=== PATIENT | female | born 1955 | race Caucasian/White ===

== ENCOUNTER 2016-05-05 16:58 | Observation (INO) | payer OTHER, MEDICAID ==
[~2016-05-05] VITALS: Ht 165.1 cm; Wt 49.9 kg
[2016-05-05] MEDS: 0.9% Sodium Chloride 1,000 ML IV SCH ×2 (01:45→23:46)
[~2016-05-05 16:58] MED LIST: AMIT10TA6 PO; DOXE100C4 PO; IMI50 PO; PREC VG; [UNRECOGNIZED DRUG - OTHER] PO; clonazepam PO; propanolol PO
[2016-05-05 17:14] VITALS: BP 152/92; PULSE 120; RESP 18; O2SAT 97
[2016-05-05 17:26] LABS: EOSINOPHILS % (AUTO) 0 % (0-5); MONOCYTES % (AUTO) 11.4 % (4-12); Mean Corpuscular Hemoglobin 32.4 pg (27.0-35.0); Mean Corpuscular Volume 93.5 fL (81-100); NEUTROPHILS % (AUTO) 74.7 % (40-74); Platelet Count 303 bil/L (150-400)
--- NOTE | 2016-05-05 17:46 | DRSVH ---
PROCEDURE: X-RAY CHEST ONE VIEW, PORTABLE ([id number]) INDICATIONS: confusion TECHNIQUE: One view of the chest was acquired. COMPARISON: [facility], , CHEST 1VW (PORTABLE), 11/22/2012, 16:11. FINDINGS: Surgical changes and devices: None. Lungs and pleura: No pleural effusions or pneumothorax. Lungs are clear. Mediastinum: Mediastinal contours appear normal. Heart size is normal. Bones and chest wall: No suspicious bony lesions. Overlying soft tissues appear unremarkable. Calci fic tendinitis is present within the shoulders bilaterally. IMPRESSION: No acute pulmonary process. Dictated by: Leesa Willard M.D. on 05/05/2016 at 17:43 Approved by: Leesa Willard M.D. on 05/05/2016 at 17:43
[2016-05-05 18:27] VITALS: BP 158/93; PULSE 124; RESP 24; O2SAT 99
--- NOTE | 2016-05-05 19:08 | DRSVH ---
PROCEDURE: CT BRAIN WITHOUT CONTRAST ([id number]) INDICATIONS: AMS TECHNIQUE: Noncontrast 4.5 mm thick angled axial sections acquired from the foramen magnum to the vertex, with c oronal reformats. COMPARISON: None. FINDINGS: Image quality: Excellent. CSF spaces: Basal cisterns are patent. No extra-axial fluid collections. Ventricles are normal in size and shape. Brain: No midline shift. No intracranial masses or hemorrhage. Malik-white matter interface is norm al. Skull and face: Calvarium and visualized facial bones are intact, without suspicious lesions. Sinuses: Visualized sinuses and mastoids are clear. IMPRESSION: 1. No acute intracranial process. Dictated by: Leesa Willard M.D. on 05/05/2016 at 19:06 Approved by: Leesa Willard M.D. on 05/05/2016 at 19:06
[2016-05-05 20:31] LABS: APPEARANCE,URINE CLEAR (CLEAR,HAZY); COLOR,URINE YELLOW (YELLOW); OCCULT BLOOD,URINE SMALL (NEGATIVE)
--- NOTE | 2016-05-05 21:37 | DRSVH ---
PROCEDURE: CT ABDOMEN AND PELVIS WITH CONTRAST ([id number]) INDICATIONS: leukocytosis TECHNIQUE: After the administration of intravenous contrast, 5 mm thick sections acquired from the diaphragm to the symphysis. 5 mm coronal and sagittal reformats were acquired. For radiation dose reduction, the following was used: automated exposure control, adjustment of mA and/or kV according to patient siz e. COMPARISON: None. FINDINGS: Image quality: Motion is present during multiple portions of the examination, limiting areas of fine detail evaluation. ABDOMEN: Lung bases: Lung bases are clear. Heart size is normal. Solid organs: Liver is enlarged with steatosis. Spleen is normal in size and enhancement. Gallbladd er is unremarkable. Biliary system is non dilated. Pancreas enhances normally. No adrenal nodules. Left kidney demonstrates normal enhancement without obstruction. 37 mm renal cyst is present. The ri ght kidney is in an anterior somewhat lower abdominal position with amorphic structure. There is no g ross obstruction. Peritoneum and bowel: Bowel loops demonstrate normal wall thickness and caliber. No free fluid or a ir. The appendix is unremarkable. No right lower quadrant inflammatory change. Nodes and vessels: No retroperitoneal or mesenteric adenopathy by size criteria. Aorta and inferior vena cava are normal in size. Miscellaneous: No ventral hernias. PELVIS: Genitourinary: Bladder wall thickness is normal. Miscellaneous: No inguinal hernias or adenopathy. Bones: No suspicious bony lesions. No vertebral body compression fractures. IMPRESSION: 1. No definitely visualized source of leukocytosis. 2. It is noted that the right kidney is somewhat amorphous in morphology and in an anterior inferior position. This could represent congenital malrotation. Superimposed areas of old infection or inflamm ation or surgical change cannot be definitively excluded. There is no gross obstruction identified. Dictated by: Leesa Willard M.D. on 05/05/2016 at 21:35 Approved by: Leesa Willard M.D. on 05/05/2016 at 21:35
[2016-05-05] MEDS ORDERED: 0.9% Sodium Chloride 1,000 ML IV ONE (22:08)
--- NOTE | 2016-05-05 22:26 | ED.REPORT ---
HPI-Altered Mental Status Date of Service May 05, 2016 ED Provider: Oliver Lyles MD Pt is a 60 year old female who presents to the ED via EMS due to AMS. Today, the patient was found by her neighbors "babbling" loudly with her pants down and around her ankles. Pt is not able to put together a coherent sentence. Pt's neighbors last saw her normal 36 hours ago. They know of no similar history. When I go into the room to evaluate the patient is singing. When redirected, the patient starts "ruff, ruffing" like a dog. History difficult to obtain. Nursing Notes Stated Complaint: CONFUSED Chief Complaint: General Complaint Nursing Notes Reviewed: Yes Allergies: Coded Allergies: Penicillins (Verified Allergy, Unknown, 11/22/12) Scheduled ([propanolol]) 10 MG PO HS Amitriptyline-Expunged Drug, Do Not Renew! (Amitriptyline-Expunged Drug, Do Not Renew!) 10 Mg Tablet 10 MG PO HS Doxepin-Expunged Drug, Do Not Renew! (Doxepin-Expunged Drug, Do Not Renew!) 100 Mg Capsule 300 MG PO DAILY Estrogens Conj-Expunged Drug, Do Not Renew! (Premarin Vaginal-Expunged Drug, Do Not Renew!) 42.5 Gm Cream.appl 42.5 GM VG DAILY Scheduled PRN ([clonazepam]) 0.5 MG PO DAILY PRN PRN ([excederine]) 1 TAB PO Q4 PRN PRN Sumatriptan-Expunged Drug, Do Not Renew! (Imitrex-Expunged Drug, Do Not Renew!) 50 Mg Tab 25 MG PO DAILY PRN PRN General Time Seen by MD: 19:10 Chief Complaint Not acting right Hx Obtained From: EMS Unable to Obtain Hx: Mental status Arrived By: Ambulance Sudden in Onset?: Yes Onset Occurred: Onset unknown Past Medical History Past Medical History Notes: History obtained from old records Past Medical History Fibromyalgia, migraine headaches, chronic anxiety, insomnia. Past Surgical History She had a tonsillectomy, and two C sections, hysterectomy, BSO, and surgical skin cancer treatment. Smoking History Never Smoker Social History Alcohol Use: Denies alcohol use Drug Use: Denies drug use Review of Systems Unable to Obtain ROS Mental status Physical Exam Initial Vital Signs Vital Signs (First) Date Time Temp Pulse Resp B/P Pulse Ox O2 Delivery O2 Flow Rate FiO2 05/05/16 17:14 36.8 120 18 152/92 97 Room Air Initial VS: Reviewed ENT: Conjunctiva normal, No scleral icterus Skin: Warm, Dry General/Constitutional: Awake Incoherent speaking, "Ruffing" like a dog. Head / Eyes: Atraumatic, Normocephalic, PERRL Neck: Atraumatic, Full range of motion Respiratory / Chest: Breath sounds NL, Breath sounds = bilat, No respiratory distress Cardiovascular: Heart rate NL, Regular rhythm, Heart sounds NL, Peripheral circulation NL Neurologic: No motor deficits Speech incoherent Interpretation & Diagnostics Lab Results Interpretation Result Diagram: 05/05/16 1705 05/05/16 1705 Test 05/05/16 17:05 05/05/16 17:06 05/05/16 20:02 White Blood Count 20.9th/mm3 (3.8-10.1) Red Blood Count 4.45mil/mm3 (3.90-5.20) Hemoglobin 14.4g/dL (12.0-15.6) Hematocrit 41.6% (35.0-46.0) Mean Corpuscular Volume 93.5fL (81-100) Mean Corpuscular Hemoglobin 32.4pg (27.0-35.0) Mean Corpuscular Hemoglobin Concent 34.6% (32.0-37.0) Red Cell Distribution Width 14.7% (12.3-15.4) Platelet Count 303bil/L (150-400) Neutrophils (%) (Auto) 74.7% (40-74) Lymphocytes (%) (Auto) 10.3% (14-46) Monocytes (%) (Auto) 11.4% (4-12) Eosinophils (%) (Auto) 0% (0-5) Basophils (%) (Auto) 1.0% (0-3) Sodium Level 141mEq/L (134-144) Potassium Level 4.0mEq/L (3.5-5.2) Chloride Level 99mEq/L (97-108) Carbon Dioxide Level 18mmol/L (18-29) Blood Urea Nitrogen 19mg/dL (8-27) Creatinine 1.19mg/dL (0.57-1.00) Estimat Glomerular Filtration Rate 66mL/min (>59) Glucose Level 199mg/dL (60-99) Calcium Level 9.3mg/dL (8.5-10.1) Total Bilirubin 0.9mg/dL (0.0-1.2) Aspartate Amino Transf (AST/SGOT) 26U/L (0-50) Alanine Aminotransferase (ALT/SGPT) 14U/L (0-32) Alkaline Phosphatase 68U/L (25-165) Total Protein 7.9g/dL (6.4-8.4) Albumin 4.1g/dL (3.4-5.0) Hold Purple Top Tube Received (Received) Hold Blue Top Tube Received (Received) Hold Red Top Tube Received (Received) Hold [place] Top Tube Received (Received) Urine Color Yellow (YELLOW) Urine Appearance Clear (CLEAR,HAZY) Urine pH 6.0 (5.0-8.0) Urine Specific [place] 1.025 (1.003-1.035) Urine Protein 30mg/dL (NEG,TRACE) Urine Glucose (UA) Negativemg/dL (NEGATIVE) Urine Ketones 40mg/dL (NEGATIVE) Urine Occult Blood Small (NEGATIVE) Urine Nitrite Negative (NEGATIVE) Urine Bilirubin Negative (NEGATIVE) Urine Urobilinogen 1.0mg/dL (NORMAL) Urine Leukocyte Esterase Negative (NEGATIVE) Urine RBC 0-2/hpf (0-2) Urine WBC 0-5/hpf (0-5) Urine Epithelial Cells None/hpf (NONE-MOD) Urine Crystals None seen (NONE SEEN) Urine Bacteria Few/hpf (NONE-FEW) Urine Hyaline Casts None/lpf (NONE) Urine Granular Casts None seen (NONE SEEN) Urine Waxy Casts None seen (NONE SEEN) Urine Red Blood Cell Casts None seen (NONE SEEN) Urine White Blood Cell Casts None seen (NONE SEEN) Urine Mucus Present (None Seen) Urine Trichomonas None seen (NONE SEEN) Urine Yeast None (NONE SEEN) Urinalysis Comment None Urine Culture Reflexed Not indicated X-Ray Chest Interpretation Chest Xray Interpretation: IMPRESSION: No acute pulmonary process. Dictated by: Leesa Willard M.D. on 05/05/2016 at 17:43 View: Portable, 1 view Interpretation / Wet Read by: Interpret - Radiologist CT Head Interpretation IMPRESSION: 1. No acute intracranial process. Dictated by: Leesa Willard M.D. on 05/05/2016 at 19:06 Study: Head CT no contrast Interpretation / Wet Read by: Interpret - Radiologist CT Abd / Pelvis Interpretation IMPRESSION: 1. No definitely visualized source of leukocytosis. 2. It is noted that the right kidney is somewhat amorphous in morphology and in an anterior inferior position. This could represent congenital malrotation. Superimposed areas of old infection or inflammation or surgical change cannot be definitively excluded. There is no gross obstruction identified. Dictated by: Leesa Willard M.D. on 05/05/2016 at 21:35 Study type: Abdominal CT IV contrast Interpretation / Wet Read by: Interpret - Radiologist Procedures Lumbar Puncture Text / Dict Note: 2 Physician consent (Myself and Dr. Lewis), patient altered. Time: 23:10 Procedure Performed by: ED physician Consent / Setup / Site Prep: Time-out performed, Hand hygiene observed, Stand sterile technique, Sterile drapes applied, Patient sitting up Skin Preparation Agent: Betadine Local Anesthesia: Lidocaine w epi 1% Inserted Needle at: L3 L4 Second Attempt at: L4 L5 (successful with clear fluid) Post-Procedure / Complications: Dressing applied, No complications, Tolerated procedure well, Patient stable Re-Eval/Medical Decision Med Decision/Clinical Course 60-year-old female history of anxiety brought in by paramedics after she was found outside by her neighbors naked and confused. They report no history of similar. Patient with nonsensical speech. Tachycardic to 120s. Afebrile. White blood cell count is 20,000. Urine toxicology positive for tricyclic antidepressants and marijuana. Labs otherwise unremarkable. Urine negative for infection. Chest x-ray clear. CT abdomen and pelvis no acute pathology. Lumbar puncture performed with results pending. First drops appeared cloudy remainder was clear. Patient will be admitted to hospitalist service for altered mental status, leukocytosis. 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 No known history of psychosis. Re-Evaluation/Progress #2: Time of Eval: 22:03 Re-Evaluation/Progress Note: Pt rechecked. Unchanged. Re-Evaluation/Progress #3: Time of Eval: 22:52 Re-Evaluation/Progress Note: Pt given Ativan. LP performed. Pt tolerated well. Consultation : Referral / Consult Name: Christoph Broderick MD Consulted With: Hospitalist Call Returned at: 22:24 Grain Elevator Clerk: Will see patient, Agrees with eval, Agrees with plan (LP and admission), Accepts admit Counseled Regarding: Diagnosis, Lab results, Need for admission Patient Discharge & Departure Impression: Primary Impression: Altered mental status Altered mental status type: unspecified Qualified Code: R41.82 - Altered mental status, unspecified Additional Impression: Leukocytosis Leukocytosis type: unspecified Qualified Code: D72.829 - Elevated white blood cell count, unspecified Disposition: ADMITTED TO HOSPITAL Discharge Condition All VS Reviewed: Yes Referrals: Rod Onofre MD (PCP) Scribe Attestation Portions of this note were transcribed by Marilee James. I, (Dr. Lyles) personally performed the history, physical exam and medical decision-making; I reviewed and confirmed the accuracy of the information in the transcribed note. Signed by: Marilee James. 05/05/2016, 1120 copies to: Rod Onofre MD, Ben M MD May 05, 2016 22:26 Marilee James May 05, 2016 23:28
[2016-05-05 23:22] VITALS: BP 154/90; PULSE 127; RESP 22
[2016-05-05] MEDS ORDERED: Alum-Mag Hydrox-Simeth 30 mL Suspension PO PRN (23:50)
[2016-05-05] MEDS ORDERED: Polyethylene Glycol (PEG) 17 Gm Powder PO PRN (23:50)
[2016-05-06 00:16] LABS: APPEARANCE,CSF CLEAR (CLEAR); COLOR,CSF COLORLESS (COLORLESS); WHITE BLOOD CELL,CSF 2 /mm3 (0-5)
[2016-05-06] MEDS ORDERED: Vancomycin Dose per Pharmacist XX SCH (00:20)
[2016-05-06] MEDS ORDERED: 0.9% Sodium Chloride 1,000 ML IV ONE ×2 (00:25→06:25)
[2016-05-06] MEDS ORDERED: Ampicillin Inj 2,000 MG in 0.9% Sodium Chloride 100 ML IV SCH (00:30)
[2016-05-06] MEDS ORDERED: Glucose 40% Oral Gel 15 Gm Tube PO PRN (01:25)
--- NOTE | 2016-05-06 01:41 | PCM.HPMED ---
Subjective Date of Service May 06, 2016 Primary Provider: Admitting Physician: Christoph Broderick MD Primary Care Physician: Rod Onofre MD Attending Physician: Christoph Broderick MD Chief Complaint: AMS with confabulation History of Present Illness: History taken from outpatient records, EMS reports, and ED report as patient is unable to give history 60-year-old female to history of hypertension, hypothyroidism, migraine headaches, questionable lupus presents to the ED via EMS after patient's neighbors found the patient babbling loudly with her pants. When questioned about this the patient is unable to recall the event, but is also unable to stay on topic. She was first seen in emergency department she was barking at the emergency physician and was unable to give any sort of response at that time. Patient was last seen 36 hours ago by her neighbors and at that time she was normal. Patient can answer simple questions and states that her head, neck , and back hurt when she moves her head forward. She denies fever. No diaphoresis, nausea or vomiting, diarrhea, although this should be taken with a grain of salt. We will need to reassess later. After each question the patient will confabulate and appears to be hallucinating. After she was unable to find words to express what she was saying and repeatedly makes reference to the charbel. Patient has never been admitted to this hospital with these types of symptoms. In the past her symptoms then associated with chest pain, flank pain and menopause. Patient is on amitriptyline and doxepin although we are not sure of her compliance. In the emergency department brain CT, chest x-ray, and CT of the abdomen were obtained, found to be unremarkable. Lumbar puncture was obtained and is as follows: White count of 2, RBCs of 95, glucose of 85, total protein of 26 White count is 20.9, hemoglobin 14.4, hematocrit 41.6, platelets are 303; neutrophil percent is 74.7 Sodium is 141, potassium 4.0, chloride 99, bicarbonate is 18, he is 19, creatinine is 1.19, glucose is 199, calcium 9.3, mag 1.9, normal LFTs, CRP is 7.1, procalcitonin pending Toxicology: Salicylates normal, acetaminophen normal, alcohol normal; drug screen pending Review of Systems: Please review of systems cannot be performed this patient was unable to maintain conversation. Review of systems in history of present illness pertinent positives and negatives are taken from ED and other records Allergies Coded Allergies: Penicillins (Verified Allergy, Unknown, 11/22/12) Home Medications Med list taken from [employer] medication module Acetaminophen 120 mg with codeine Amitriptyline 25 mg tablet oral every day Benadryl Clonazepam 0.5 mg 3 times a day Doxepin 100 mg capsule 3 times a day Hydrochlorothiazide 12 mg 1-2 tablets every morning Imitrex 100 mg tablet Levothyroxine 25 g tablet daily Reported methocarbamol 750 mg tablet Metronidazole topical gel Ortho Evra 150 g-35 g per 24-hour patch Premarin 0.625 mg/g vaginal cream Prilosec 20 mg once daily Propanolol 20 mg tablet Restasis Valacyclovir 1 g tablet, 2 pills by mouth twice a day at first sign may continued for 5 days PMH Hypothyroidism Sleep apnea Presbyopia Migraine headaches GERD Fibromyalgia History of deficiency History DVT, 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 Family History Father had stroke, glaucoma, cataracts Maternal grandfather had emphysema and Mother had macular degeneration Paternal grandfather had lung cancer Social History Hx Alcohol Use: No Hx Substance Use: No Smoking Status: Never Smoker Living Arrangement: Alone (has grown children that live in [place]) Exam Vital Signs Vital Sign - Last Date Time Temp Pulse Resp B/P Pulse Ox O2 Delivery O2 Flow Rate FiO2 05/05/16 23:22 127 22 154/90 Room Air 05/05/16 18:27 99 05/05/16 17:14 36.8 Intake and Output 05/05/16 05/05/16 05/06/16 Cumulative From/Thru 15:00 23:00 07:00 05/05/16 17:14 - 05/05/16 22:25 Intake Total 1000 ml 1000 ml Balance 1000 ml 1000 ml Intake IV Total 1000 ml 1000 ml Exam GEN: Patient is resting in bed, anxious, confabulating HEENT: PERRL, extremely dry with cracked lips and dry membranes, no JVD, decreased skin turgor Cardio: Patient is tachycardic but no murmurs rubs or gallops. Respiratory: CTA no wheezes rhonchi or rubs Abdomen positive bowel sounds nontender Extremities: No edema noted, strengths decrease 3 out of 5 in the lower extremities, 4 out of 5 in the upper extremities; no supple rigidity in the upper extremities on movement Musculoskeletal: Increased pain and tenderness on for flexion of the neck and head, no pain to palpation, Skin: No rashes noted, no petechiae, Neuro: Difficult to assess as patient will not cooperate consistently with exam ; appears to be hallucinating Psych: Patient is confabulating, unable to stay on topic, speaking extremely fast, anxious, mild happy to sad mood swings Lab and Diagnostics Result Diagram: 05/05/16 1705 05/05/16 170 X-Rays, CTs and MRIs Chest x-ray IMPRESSION: No acute pulmonary process. Dictated by: Leesa Willard M.D. on 05/05/2016 at 17:[address] IMPRESSION: 1. No acute intracranial process. Dictated by: Leesa Willard M.D. on 05/05/2016 at 19:[address] IMPRESSION: 1. No definitely visualized source of leukocytosis. 2. It is noted that the right kidney is somewhat amorphous in morphology and in an anterior inferior position. This could represent congenital malrotation. Superimposed areas of old infection or inflammation or surgical change cannot be definitively excluded. There is no gross obstruction identified. Dictated by: Leesa Willard M.D. on 05/05/2016 at 21:35 Assessment & Plan 60-year-old female with past medical history of hypothyroidism, anxiety, depression, migraine headaches presents via EMS due to ongoing confabulation with a negative spinal tap and imaging #1 acute encephalopathy with confabulation; present on admission; ongoing -Concern for Wernicke's encephalopathy, serotonin syndrome, stroke, acute psychotic episode, and possibly some form of meningitis or encephalitis, however the lumbar tap was negative -Patient presents unable to recall past events, and continually confabulating; unable to give detailed history except from outside records which make no mention of these problems -So far, salicylates, acetaminophen, and alcohol are all negative, with drug screen pending -Normal saline infusions up to 4 L as patient has extremely dry -Maintain on 100 mL/hr NS -No identified sites of infection, also no fever -Recommend MRI in the a.m. if patient is able to remain still; -Consider neurology consult and EEG #2 Concern for Wernicke's encephalopathy; present admission; ongoing -Patient's confabulating with no known cause; patient's blood alcohol is normal on presentation -Patient is currently on clear liquids after receiving 200 mg of thiamine, will continue daily #3 Acute leukocytosis with concern for meningitis; present on admission; ongoing -Patient needs criteria for SIRS, however there is no fever and the pulse may be related to the anxiety patient is experiencing -In without a fever as a good chance this patient has ongoing infection that has yet to be identified -Blood cultures are ordered -CSF fluid was negative for signs of infection, and was negative on Gram stain -UA -Currently not starting patient on any antibiotics; will reassess; of note, patient was ordered vancomycin, ceftriaxone, ampicillin for suspected meningitis , however these were discontinued prior to admission as LP was negative #4 less likely serotonin syndrome; present on admission; ongoing -Patient is currently on amitriptyline and doxepin, both of which affect serotonin levels Patient presents with an anion gap of 24 and with an elevated creatinine; but LFTs are normal, and CK was currently pending -Aggressive hydration with normal saline up to 4 L -Ativan 1-2 mg IV every 4 hours currently for agitation -Blood pressures currently 150s over 90s; we will treat this as needed -Patient becomes unstable consider serotonin antagonist like cyproheptadine 12 mg by mouth #5 acute kidney injury, likely prerenal azotemia; present on admission; ongoing -Patient has a normal creatinine at baseline; currently creatinine is 1.19 and patient looks very dehydrated -Patient given aggressive hydration on admission -Recheck labs in a.m. #6 hyperglycemia; present on admission; ongoing -Patient presents with a blood glucose of 199; on outpatient records patient has no diagnosis of diabetes and is currently not on a medications for diabetes -A1c will be checked -Patient to be placed on low correctional dose insulin after thiamine is given #7 hypothyroidism; present admission; ongoing -Patient's last TSH was 5.7 outpatient -Recheck TSH/FT4 Disposition: Patient is being admitted to inpatient general medical expected length of stay greater than 2 minutes to the severity of presentation, duration of treatment, risk of adverse events Pain Evaluation: Adequate Pain Control Resuscitation Status: CPR: Attempt Resuscitation Attending Statement The patient was seen and examined together with Dr. Wang on 05/05 and I agree with the history, exam and plan as outlined in the note above. Hernando Wang DO May 06, 2016 01:41 Christoph Broderick MD May 06, 2016 01:50
[2016-05-06] MEDS: Thiamine Inj 200 MG in Dextrose 5% 50 ML IV SCH ×2 (01:45→21:10)
--- NOTE | 2016-05-06 03:35 | NUR ---
Admit Admitted into ED exam room 11 as inpatient. NS @ 100ml/hr initiated per orders. Tele ST HR low 100's per heart monitor. RA w/o s/s respiratory distress. Alert to name but disoriented with mumbled speech and unable to provide any meaningful information at this time. 1:1 for patient safety. Unable to orient to call light use at this time.
[2016-05-06 04:30] VITALS: BP 145/91; PULSE 109; RESP 18; O2SAT 95
[2016-05-06 05:41] LABS: BASOPHILS % (AUTO) 0.6 % (0-3); EOSINOPHILS % (AUTO) 0.3 % (0-5); MONOCYTES % (AUTO) 13.1 % (4-12); Mean Corpuscular Hemoglobin 32.3 pg (27.0-35.0); Mean Corpuscular Volume 93.1 fL (81-100); Platelet Count 256 bil/L (150-400)
[2016-05-06 07:49] VITALS: BP 124/78; PULSE 114; RESP 16; O2SAT 94
--- NOTE | 2016-05-06 07:56 | PCM.PNMED ---
Subjective Date of Service May 06, 2016 Subjective Patient is awake today but does still seem somewhat agitated. Her son is at bedside and notes that that is unusual for her. He notes she has never had a similar problem in the past. There is a history of possibly having had a stroke in the past. Urine tox screen per ER nurse reveals tricyclic antidepressants is positive along with marijuana is positive everything else on the screen is negative. Exam Vital Signs Vital Sign - Last Date Time Temp Pulse Resp B/P Pulse Ox O2 Delivery O2 Flow Rate FiO2 05/06/16 04:30 36.3 109 18 145/91 95 Room Air Intake and Output 05/05/16 05/05/16 05/06/16 Cumulative From/Thru 15:00 23:00 07:00 05/05/16 17:14 - 05/06/16 06:35 Intake Total 1000 ml 474 ml 1474 ml Output Total 700 ml 700 ml Balance 1000 ml -226 ml 774 ml Intake IV Total 1000 ml 474 ml 1474 ml Output Urine Total 700 ml 700 ml Exam Constitutional: Alert but appears very anxious Head: Normocephalic atraumatic Eyes: PERRLA DC EOMI Mouth: Extremely dry mucosa Neck: No adenopathy Chest clear to auscultation Cor: Slightly tachycardic, sinus Regular rhythm S1-S2 without murmur Abdomen: Soft nontender bowel sounds present Extremities: No pedal edema Skin: no rashes Psych: Appears somewhat agitated and anxious Neuro: She is alert and oriented 3, no focal deficits noted Lab and Diagnostics Laboratory Tests 72 Hours Test 05/05/16 17:05 05/05/16 17:06 05/05/16 20:02 05/05/16 23:46 White Blood Count 20.9th/mm3 (3.8-10.1) Red Blood Count 4.45mil/mm3 (3.90-5.20) Hemoglobin 14.4g/dL (12.0-15.6) Hematocrit 41.6% (35.0-46.0) Mean Corpuscular Volume 93.5fL (81-100) Mean Corpuscular Hemoglobin 32.4pg (27.0-35.0) Mean Corpuscular Hemoglobin Concent 34.6% (32.0-37.0) Red Cell Distribution Width 14.7% (12.3-15.4) Platelet Count 303bil/L (150-400) Neutrophils (%) (Auto) 74.7% (40-74) Lymphocytes (%) (Auto) 10.3% (14-46) Monocytes (%) (Auto) 11.4% (4-12) Eosinophils (%) (Auto) 0% (0-5) Basophils (%) (Auto) 1.0% (0-3) Sodium Level 141mEq/L (134-144) Potassium Level 4.0mEq/L (3.5-5.2) Chloride Level 99mEq/L (97-108) Carbon Dioxide Level 18mmol/L (18-29) Blood Urea Nitrogen 19mg/dL (8-27) Creatinine 1.19mg/dL (0.57-1.00) Estimat Glomerular Filtration Rate 66mL/min (>59) Glucose Level 199mg/dL (60-99) Calcium Level 9.3mg/dL (8.5-10.1) Total Bilirubin 0.9mg/dL (0.0-1.2) Aspartate Amino Transf (AST/SGOT) 26U/L (0-50) Alanine Aminotransferase (ALT/SGPT) 14U/L (0-32) Alkaline Phosphatase 68U/L (25-165) Total Protein 7.9g/dL (6.4-8.4) Albumin 4.1g/dL (3.4-5.0) Hold Purple Top Tube Received (Received) Hold Blue Top Tube Received (Received) Hold Red Top Tube Received (Received) Hold Bearden Top Tube Received (Received) Urine Color Yellow (YELLOW) Urine Appearance Clear (CLEAR,HAZY) Urine pH 6.0 (5.0-8.0) Urine Specific [place] 1.025 (1.003-1.035) Urine Protein 30mg/dL (NEG,TRACE) Urine Glucose (UA) Negativemg/dL (NEGATIVE) Urine Ketones 40mg/dL (NEGATIVE) Urine Occult Blood Small (NEGATIVE) Urine Nitrite Negative (NEGATIVE) Urine Bilirubin Negative (NEGATIVE) Urine Urobilinogen 1.0mg/dL (NORMAL) Urine Leukocyte Esterase Negative (NEGATIVE) Urine RBC 0-2/hpf (0-2) Urine WBC 0-5/hpf (0-5) Urine Epithelial Cells None/hpf (NONE-MOD) Urine Crystals None seen (NONE SEEN) Urine Bacteria Few/hpf (NONE-FEW) Urine Hyaline Casts None/lpf (NONE) Urine Granular Casts None seen (NONE SEEN) Urine Waxy Casts None seen (NONE SEEN) Urine Red Blood Cell Casts None seen (NONE SEEN) Urine White Blood Cell Casts None seen (NONE SEEN) Urine Mucus Present (None Seen) Urine Trichomonas None seen (NONE SEEN) Urine Yeast None (NONE SEEN) Urinalysis Comment None Urine Culture Reflexed Not indicated C-Reactive Protein 7.1mg/dL (0.0-0.5) Salicylates Level < 3.0ug/mL (30-250) Acetaminophen Level < 15.0ug/mL Rx (10-25) Alcohol, Quantitative < 10mg/dL (0-10) Test 05/05/16 23:57 05/05/16 23:59 05/06/16 00:58 05/06/16 01:35 CSF Appearance Clear (CLEAR) CSF Color Colorless (COLORLESS) CSF WBC 2/mm3 (0-5) CSF RBC 95/mm3 CSF Mononuclear WBCs % CSF Polynuclear WBCs % CSF Other Cells CSF Glucose 85mg/dL (45-90) CSF Total Protein 26mg/dL (15-45) Magnesium Level 1.9mg/dL (1.6-2.6) Total Creatine Kinase 176U/L (21-215) Thyroid Stimulating Hormone (TSH) 7.270uIU/mL (0.450-4.500) Free Thyroxine 1.14ng/dL (0.82-1.77) Lactic Acid Level 0.9mmol/L (0.4-2.0) Test 05/06/16 05:14 White Blood Count 14.4th/mm3 (3.8-10.1) Red Blood Count 3.78mil/mm3 (3.90-5.20) Hemoglobin 12.2g/dL (12.0-15.6) Hematocrit 35.2% (35.0-46.0) Mean Corpuscular Volume 93.1fL (81-100) Mean Corpuscular Hemoglobin 32.3pg (27.0-35.0) Mean Corpuscular Hemoglobin Concent 34.7% (32.0-37.0) Red Cell Distribution Width 14.5% (12.3-15.4) Platelet Count 256bil/L (150-400) Neutrophils (%) (Auto) 62.0% (40-74) Lymphocytes (%) (Auto) 21.8% (14-46) Monocytes (%) (Auto) 13.1% (4-12) Eosinophils (%) (Auto) 0.3% (0-5) Basophils (%) (Auto) 0.6% (0-3) Sodium Level 144mEq/L (134-144) Potassium Level 4.1mEq/L (3.5-5.2) Chloride Level 107mEq/L (97-108) Carbon Dioxide Level 22mmol/L (18-29) Blood Urea Nitrogen 11mg/dL (8-27) Creatinine 0.52mg/dL (0.57-1.00) Estimat Glomerular Filtration Rate 172mL/min (>59) Glucose Level 99mg/dL (60-99) Calcium Level 8.2mg/dL (8.5-10.1) Total Bilirubin 1.0mg/dL (0.0-1.2) Aspartate Amino Transf (AST/SGOT) 20U/L (0-50) Alanine Aminotransferase (ALT/SGPT) 12U/L (0-32) Alkaline Phosphatase 56U/L (25-165) Total Protein 5.9g/dL (6.4-8.4) Albumin 3.5g/dL (3.4-5.0) Result Diagram: 05/06/16 0514 05/06/16 0514 X-Rays, CTs and MRIs Chest x-ray IMPRESSION: No acute pulmonary process. Dictated by: Leesa Willard M.D. on 05/05/2016 at 17:[address] IMPRESSION: 1. No acute intracranial process. Dictated by: Leesa Willard M.D. on 05/05/2016 at 19:[address] IMPRESSION: 1. No definitely visualized source of leukocytosis. 2. It is noted that the right kidney is somewhat amorphous in morphology and in an anterior inferior position. This could represent congenital malrotation. Superimposed areas of old infection or inflammation or surgical change cannot be definitively excluded. There is no gross obstruction identified. Dictated by: Leesa Willard M.D. on 05/05/2016 at 21:35 Assessment & Plan 60-year-old female with past medical history of hypothyroidism, anxiety, depression, migraine headaches presents via EMS due to ongoing confabulation with a negative spinal tap and imaging #1 acute encephalopathy with confabulation; present on admission; ongoing -Concern for Wernicke's encephalopathy, serotonin syndrome, stroke, acute psychotic episode, and possibly some form of meningitis or encephalitis, however the lumbar tap was negative -Patient presents unable to recall past events, and continually confabulating; unable to give detailed history except from outside records which make no mention of these problems -So far, salicylates, acetaminophen, and alcohol are all negative, with drug screen pending -Normal saline infusions up to 4 L as patient has extremely dry -Maintain on 100 mL/hr NS -No identified sites of infection, also no fever -Recommend MRI in the a.m. if patient is able to remain still; -Consider neurology consult and EEG -We will proceed with MR stroke protocol -Is possible that she took more of her tricyclics than usual but patient denies at this point. Per ER no acute EKG changes were noted. She denies getting any medications or drugs from anyone else. #2 Concern for Wernicke's encephalopathy; present admission; ongoing -Patient's confabulating with no known cause; patient's blood alcohol is normal on presentation -Patient is currently on clear liquids after receiving 200 mg of thiamine, will continue daily #3 Acute leukocytosis with concern for meningitis; present on admission; ongoing -Patient needs criteria for SIRS, however there is no fever and the pulse may be related to the anxiety patient is experiencing -In without a fever as a good chance this patient has ongoing infection that has yet to be identified -Blood cultures are ordered -CSF fluid was negative for signs of infection, and was negative on Gram stain -UA -Currently not starting patient on any antibiotics; will reassess; of note, patient was ordered vancomycin, ceftriaxone, ampicillin for suspected meningitis , however these were discontinued prior to admission as LP was negative -White count today on May 06 is down from initial value and she remains afebrile -She has no other signs or symptoms of viral or bacterial illness #4 less likely serotonin syndrome; present on admission; ongoing -Patient is currently on amitriptyline and doxepin, both of which affect serotonin levels Patient presents with an anion gap of 24 and with an elevated creatinine; but LFTs are normal, and CK was currently pending -Aggressive hydration with normal saline up to 4 L -Ativan 1-2 mg IV every 4 hours currently for agitation -Blood pressures currently 150s over 90s; we will treat this as needed -Patient becomes unstable consider serotonin antagonist like cyproheptadine 12 mg by mouth #5 acute kidney injury, likely prerenal azotemia; present on admission; ongoing -Patient has a normal creatinine at baseline; currently creatinine is 1.19 and patient looks very dehydrated -Patient given aggressive hydration on admission -Recheck labs in a.m. #6 hyperglycemia; present on admission; ongoing -Patient presents with a blood glucose of 199; on outpatient records patient has no diagnosis of diabetes and is currently not on a medications for diabetes -A1c will be checked -Patient to be placed on low correctional dose insulin after thiamine is given #7 hypothyroidism; present admission; ongoing -Patient's last TSH was 5.7 outpatient -Recheck TSH/FT4 Disposition: Patient is being admitted to inpatient general medical expected length of stay greater than 2 minutes to the severity of presentation, duration of treatment, risk of adverse events Resuscitation Status: CPR: Attempt Resuscitation Time spent 40 minutes Lexus Figueredo MD May 06, 2016 07:56
[2016-05-06] MEDS: Insulin LISPRO 300 Unit/3 mL Inj SUBQ SCH ×4 (08:00→21:14)
[2016-05-06] MEDS ORDERED: cefTRIAXone Inj 2,000 MG in IV Premix 1 EACH IV SCH (08:30)
[2016-05-06] MEDS: 0.9% Sodium Chloride 1,000 ML IV SCH ×2 (09:46→19:46)
[2016-05-06] MEDS ORDERED: PREC VG (10:17)
[2016-05-06] MEDS ORDERED: NORE1PAT7 TD (10:18)
[2016-05-06] MEDS ORDERED: CYCL1DRO AFFECT_EYE (10:22)
[2016-05-06] MEDS ORDERED: SUMA100T2 PO (10:23)
[2016-05-06] MEDS ORDERED: ESTR0.9T PO (10:25)
[2016-05-06] MEDS ORDERED: DOXE100C4 PO (10:25)
[2016-05-06] MEDS ORDERED: AMT25T PO (10:26)
[2016-05-06] MEDS ORDERED: LEVO25TA5 PO (10:26)
[2016-05-06] MEDS ORDERED: KLO5T PO (10:29)
[2016-05-06] MEDS ORDERED: PROP20TA5 PO (10:30)
[2016-05-06] MEDS ORDERED: OMEP20CA11 PO (10:31)
[2016-05-06] MEDS ORDERED: ONDA-54 PO (10:31)
--- NOTE | 2016-05-06 12:08 | DRSVH ---
PROCEDURE: MRI STROKE PROTOCOL ([id number]) Pre- and post-contrast brain MRI, non-contrast brain MR angiogram, pre- and postcontrast neck MR portia ogram INDICATIONS: acute encephalopathy TECHNIQUE: Brain: Noncontrast axial T1 spin echo, axial T2 fast spin echo, sagittal and axial FLAIR, coronal T2 fast spin echo, axial gradient echo, axial diffusion and ADC through the brain. After the administr ation of contrast, axial 3D VIBE of the cranial vasculature and brain. Brain MRA: Non-contrast 3-D time of flight MR angiogram, with multiple htnwthd-fpnflelzi-dnwizmgfsf (MIP) reformats performed. Neck MRA: Axial and sagittal TruFISP through the neck. Coronal dynamic MR angiogram during administ ration of contrast in the arterial and venous phases, with 3-dimenstional bnobyuq-hoteypprc-sgheprjfu n (MIP) reformats constructed from subtraction images. COMPARISON: None. FINDINGS: Image quality: Limited by motion artifact. BRAIN: CSF spaces: Ventricles are normal in size and shape. Basal cisterns are patent. No extra-axial flu id collections. Brain: No intracranial bleeds or mass effects. Incidental note made of choroid plexus xanthogranulo mas in the lateral ventricles bilaterally. Malik-white matter interface is normal. Diffusion weighted images show no acute ischemic insults. No abnormal signal identified in the dorsal-medial thalamus, the mammillary bodies, the periaqueductal area or the tectal plate. Brainstem appears normal. Normal intravascular flow voids are present. No abnormal intracranial enhancement. Normal enhancement of t he dural sinuses noted. Skull and face: Calvarial marrow signal is normal. Orbits appear normal. Sinuses: Sinuses and mastoids are clear. BRAIN MR ANGIOGRAM: Anterior circulation: Intracranial internal carotid arteries are normal in size and enhancement. Th e flow within the paired anterior cerebral arteries is normal and symmetric. The flow within the mid dle cerebral arteries is normal and symmetric. The anterior communicating artery is seen. No stenos es, occlusions, or aneurysms. Posterior circulation: The visualized portions of the vertebral arteries demonstrate normal caliber, and join to form a normal appearing basilar artery. The flow within the posterior cerebral arteries is normal and symmetric. No stenoses, occlusions, or aneurysms. NECK MR ANGIOGRAM: Carotids: Great vessels demonstrate a conventional anatomy as they arise from the aortic arch. The origins of the common carotid arteries appear patent. The calibers and courses of both common caroti d arteries are normal. The bifurcation regions appear normal bilaterally. The internal carotid sudhir sarita demonstrate normal course and caliber. Posterior circulation: The origins of the vertebral arteries appear patent. More superior portions of both vertebral arteries demonstrate normal course and caliber, and join to form a normal appearing basilar artery. Miscellaneous: Subclavian arteries appear patent. Pre-contrast images through the neck show no soft tissue abnormalities. IMPRESSION: BRAIN MRI: 1. No acute intracranial disease process. 2. No areas of acute or chronic infarction. 3. No intracranial hemorrhage. 4. No definite MRI evidence of Wernicke's encephalopathy. BRAIN MR ANGIOGRAM: Negative examination. NECK MR ANGIOGRAM: Negative examination. The estimate of stenosis included in the report of the imaging study was calculated using the NASCET method Dictated by: Malika Mai MD, PhD on 05/06/2016 at 12:07 Approved by: Malika Mai MD, PhD on 05/06/2016 at 12:07
--- NOTE | 2016-05-06 13:15 | NUR ---
transfer Addendum: 05/06/16 at 1414 by YANDY SKY RN report given to Norma BRITTON transferred to [facility] 242-1 at 1355hrs.
[2016-05-06 13:16] VITALS: BP 153/94; PULSE 107; RESP 17; O2SAT 98
--- NOTE | 2016-05-06 13:52 | NUR ---
Arrival to room 242-1 Pt brought to room in bed from ER. Alert and aware she has lost 4-5 days. Son here at 1500, and with ok from patient, gave an update. Family report this is not her baseline.
[2016-05-06 13:55] VITALS: BP 156/82; PULSE 85; RESP 20; O2SAT 98
--- NOTE | 2016-05-06 17:42 | NUR ---
shower/estrogen patch pt took 1 hour shower. has 3 patches - 2 on buttocks, 1 on lower abd- reports these are estrogen patches. states leaves them on, even if they are old, as they don't absorb very well. C/o headach - states wearing a shower cap with wet hair helps with this.
[2016-05-06 19:50] VITALS: BP 151/72; PULSE 98; RESP 19; O2SAT 98
[2016-05-06] MEDS: Ondansetron 2 mg/mL 2 mL Inj IVPUSH PRN (23:34)
--- NOTE | 2016-05-07 02:25 | NUR ---
Migraine Pt is having severe migraine and does not have her daily sumatriptan succinate and states she takes 2 pills of Motrin with it. Current pain medication prescribed not being effective. paged
[2016-05-07] MEDS: 0.9% Sodium Chloride 1,000 ML IV SCH ×2 (02:36→14:58)
[2016-05-07] MEDS: Ondansetron 2 mg/mL 2 mL Inj IVPUSH PRN ×2 (03:59→16:12)
[2016-05-07 05:47] VITALS: BP 175/98; PULSE 93; RESP 20; O2SAT 96
[2016-05-07 06:10] VITALS: BP 186/101
--- NOTE | 2016-05-07 06:13 | NUR ---
Elevated BP Pt has elevated BP. Pt had 172/93 and now has 186/101. Pt states she feels fine. paged.
[2016-05-07] MEDS: Insulin LISPRO 300 Unit/3 mL Inj SUBQ SCH ×4 (07:44→21:33)
[2016-05-07 09:41] LABS: BASOPHILS % (AUTO) 1.3 % (0-3); EOSINOPHILS % (AUTO) 1.2 % (0-5); MONOCYTES % (AUTO) 11.7 % (4-12); Mean Corpuscular Hemoglobin 32.9 pg (27.0-35.0); Mean Corpuscular Volume 92.8 fL (81-100); NEUTROPHILS % (AUTO) 51.4 % (40-74); Platelet Count 276 bil/L (150-400)
[2016-05-07 09:50] VITALS: BP 138/84; PULSE 104; RESP 16; O2SAT 98
[2016-05-07 10:16] LABS: ERYTHROCYTE SEDIMENTATION RATE 18 mm/hr (0-40)
[2016-05-07 13:29] VITALS: BP 146/84; PULSE 99; RESP 17; O2SAT 98
[2016-05-07] MEDS ORDERED: Albuterol-Ipratropium 3 mL Inhalation Solution NEB PRN (14:50)
--- NOTE | 2016-05-07 15:31 | NUR ---
Social Work Screen Note: EMR reviewed. Patient is a 60 year old female admitted on 05/06/16 for AMS Leukocytosis. Patient payer as [employer] and [facility]. Patient PCP as MD Onofre. Patient resides in [facility] with son Thor, . Patient SBA at this time. SW to follow patient's clinical course and assess for any further discharge needs. At this time, no anticipated discharge needs identified at this time. SW to follow. PLAN: Home with son via POV, pending clinical course Raiza MIGUEL
[2016-05-07 15:33] VITALS: PULSE 66; O2SAT 98
[2016-05-07] MEDS ORDERED: KCl 40 mEq/D5W 500 mL 40 MEQ in IV Premix 500 EACH IV ONE (15:40)
[2016-05-07] MEDS ORDERED: Potassium Chloride 20 mEq/15 mL 15mL Oral Soln PO ONE (15:40)
[2016-05-07] MEDS ORDERED: Magnesium Sulf 2 Gm/50mL Water 2 GM in IV Premix 1 EACH IV ONE (17:35)
[2016-05-07 18:19] VITALS: BP 136/79; PULSE 96; RESP 17; O2SAT 96
--- NOTE | 2016-05-07 18:28 | NUR ---
Migraine treatment Pt. c/o start of migraine today around 1300. She said morphine made her very nauseated, so we tried IM toradol, some ondansetron for some nausea she was having, and ice and heat. She stated relief with these interventions and medications, although she says the only thing that works the best is her imitrex. Withholding this med per MDs orders.
[2016-05-07] MEDS ORDERED: Pt Own Med->RESTASIS AFFECT_EYE PRN (18:45)
--- NOTE | 2016-05-07 20:14 | NUR ---
[facility] called to let pt know to bring in eye drops. Pt informed and stated she probably would not inform family to bring due to patient thinking she is not going to be here long.
[2016-05-07] MEDS ORDERED: Thiamine Inj 500 MG in Dextrose 5% 50 ML IV SCH (20:30)
--- NOTE | 2016-05-08 01:14 | NUR ---
Anxiety Pt got rather agitated after she was incontinent with urine in bed. Pt took shower and linens were changed. Pt stated her "head feels funny, never felt this way before, cant trust my own head, like there is reverberating electricity in her head". Tried relaxation techniques with minimal effect. Conferred with cullet trucker and gave her 1mg Ativan with good effect. Pt had received Ativan 9 hours prior.
[2016-05-08] MEDS: 0.9% Sodium Chloride 1,000 ML IV SCH (01:46)
[2016-05-08 05:26] VITALS: BP 143/92; PULSE 83; RESP 18; O2SAT 97
[2016-05-08] MEDS: Ondansetron 2 mg/mL 2 mL Inj IVPUSH PRN (05:26)
[2016-05-08] MEDS ORDERED: Pantoprazole 40 mg ER24 Tablet PO SCH (06:30)
--- NOTE | 2016-05-08 07:24 | PCM.PNMED ---
Subjective Date of Service May 07, 2016 Subjective Patient is [id number] female with past medical history of hypertension, hypothyroidism, migraine headaches, questionable lupus. She presented to the ED via EMS after patient's neighbors found the patient babbling loudly with her pants. Admitted for treatment of Leukocytosis and AMS. Overnight: patient reported no events Today: Patient is awake today reports feeling "more like myself" her ex- is at bedside. Patient stated she suspected the cause of her current problem is "drugs seeping in." Exam Vital Signs Vital Sign - Last Date Time Temp Pulse Resp B/P Pulse Ox O2 Delivery O2 Flow Rate FiO2 05/07/16 06:10 186/101 05/07/16 05:47 36.7 93 20 96 Room Air Intake and Output 05/06/16 05/06/16 05/07/16 Cumulative From/Thru 15:00 23:00 07:00 05/05/16 17:14 - 05/07/16 06:18 Intake Total 400 ml 1992 ml 3866 ml Output Total 3 ml 703 ml Balance 400 ml 1989 ml 3163 ml Intake Oral 400 ml 200 ml 600 ml IV Total 1792 ml 3266 ml Output Urine Total 3 ml 703 ml Exam Constitutional: Alert and oriented x 3, thin adult female Head: Normocephalic atraumatic Eyes: PERRLA DC EOMI Mouth: Extremely dry mucosa Neck: No adenopathy Chest clear to auscultation Cor: Slightly tachycardic, sinus Regular rhythm S1-S2 without murmur Abdomen: Soft nontender bowel sounds present Extremities: No pedal edema Skin: no rashes Psych: Appears somewhat agitated and anxious Neuro: She is alert and oriented 3, no focal deficits noted, confabulations still present Lab and Diagnostics Result Diagram: 05/06/16 0514 05/06/16 0514 X-Rays, CTs and MRIs Chest x-ray IMPRESSION: No acute pulmonary process. Dictated by: Leesa Willard M.D. on 05/05/2016 at 17:[address] IMPRESSION: 1. No acute intracranial process. Dictated by: Leesa Willard M.D. on 05/05/2016 at 19:[address] IMPRESSION: 1. No definitely visualized source of leukocytosis. 2. It is noted that the right kidney is somewhat amorphous in morphology and in an anterior inferior position. This could represent congenital malrotation. Superimposed areas of old infection or inflammation or surgical change cannot be definitively excluded. There is no gross obstruction identified. Dictated by: Leesa Willard M.D. on 05/05/2016 at 21:35 Assessment & Plan 60-year-old female with past medical history of hypothyroidism, anxiety, depression, migraine headaches presents via EMS due to ongoing confabulation with a negative spinal tap and imaging 1 acute encephalopathy with confabulation; present on admission; ongoing -Concern for Wernicke's encephalopathy, serotonin syndrome, stroke, acute psychotic episode, and possibly some form of meningitis or encephalitis, however the lumbar tap was negative -Patient presents unable to recall past events, and continually confabulating; unable to give detailed history except from outside records which make no mention of these problems -So far, salicylates, acetaminophen, and alcohol are all negative, with drug screen pending -Normal saline infusions up to 4 L as patient has extremely dry -Maintain on 100 mL/hr NS -No identified sites of infection, also no fever -Recommend MRI in the a.m. if patient is able to remain still; -Consider neurology consult and EEG -We will proceed with MR stroke protocol -Is possible that she took more of her tricyclics than usual but patient denies at this point. Per ER no acute EKG changes were noted. She denies getting any medications or drugs from anyone else. 2 Concern for Wernicke's encephalopathy; present admission; ongoing -Patient's confabulating with no known cause; patient's blood alcohol is normal on presentation -Patient is currently on clear liquids after receiving 200 mg of thiamine, will continue daily 3 Acute leukocytosis with concern for meningitis; present on admission; ongoing -Patient needs criteria for SIRS, however there is no fever and the pulse may be related to the anxiety patient is experiencing -In without a fever as a good chance this patient has ongoing infection that has yet to be identified -Blood cultures are ordered -CSF fluid was negative for signs of infection, and was negative on Gram stain -UA -Currently not starting patient on any antibiotics; will reassess; of note, patient was ordered vancomycin, ceftriaxone, ampicillin for suspected meningitis , however these were discontinued prior to admission as LP was negative -White count today on May 06 is down from initial value and she remains afebrile -She has no other signs or symptoms of viral or bacterial illness 4 less likely serotonin syndrome; present on admission; ongoing -Patient is currently on amitriptyline and doxepin, both of which affect serotonin levels Patient presents with an anion gap of 24 and with an elevated creatinine; but LFTs are normal, and CK was currently pending -Aggressive hydration with normal saline up to 4 L -Ativan 1-2 mg IV every 4 hours currently for agitation -Blood pressures currently 150s over 90s; we will treat this as needed -Patient becomes unstable consider serotonin antagonist like cyproheptadine 12 mg by mouth 5 acute kidney injury, likely prerenal azotemia; present on admission; ongoing -Patient has a normal creatinine at baseline; currently creatinine is 1.19 and patient looks very dehydrated -Patient given aggressive hydration on admission -Recheck labs in a.m. 6 hyperglycemia; present on admission; ongoing -Patient presents with a blood glucose of 199; on outpatient records patient has no diagnosis of diabetes and is currently not on a medications for diabetes -A1c will be checked -Patient to be placed on low correctional dose insulin after thiamine is given 7 hypothyroidism; present admission; ongoing -Patient's last TSH was 5.7 outpatient -Recheck TSH/FT4 8. Hypokalemia, - 40 IV riders ordered 9. Hypomagnesemia -magnesium sulfate given x1 Disposition: Patient is being admitted to inpatient general medical expected length of stay greater than 2 minutes to the severity of presentation, duration of treatment, risk of adverse events VTE Mechanical Devices: Intermittant Pneumatic CD Resuscitation Status: CPR: Attempt Resuscitation Attending Statement The patient was seen and examined together with Resident/House-staff on 05/07/16 and I agree with the history, exam and plan as outlined in the note above. ARSLAN AMBROCIO DO May 07, 2016 08:09 Ronny Mario May 08, 2016 17:31
[2016-05-08] MEDS: Insulin LISPRO 300 Unit/3 mL Inj SUBQ SCH (08:00)
[2016-05-08 10:08] LABS: Mean Corpuscular Hemoglobin 32.2 pg (27.0-35.0); Mean Corpuscular Volume 93.4 fL (81-100)
[2016-05-08 12:50] VITALS: BP 150/89; PULSE 82; RESP 18; O2SAT 96
--- NOTE | 2016-05-08 13:09 | PCM.DIMED ---
Discharge Instructions Date of Service May 08, 2016 Dates of Hospitalization May 06, 2016 at 01:16 Discharge Diagnosis Discharge Diagnosis Altered mental Status Acute encephalopathy with confabulation Acute leukocytosis Acute kidney injury Hyperglycemia Hypothyroidism Hypokalemia Hypomagnesemia Diet No restrictions Activity Limited until seen by PCP Call your provider Fever or Chills, Shortness of breath, Bleeding, Chest pain, Vomitting, Excessive diarrhea, Weakness (unilateral), Other (Worsening confusion, sudden vision changes, hallucinations, sudden loss of balance) Patient Instructions Follow up with your Primary Care doctor by Tuesday05/10/16 or one week by the latest Speak with your primary doctor to arrange an appointment with Rheumatology You may resume home medications If you experience sudden worsening of symptoms that brought you to the hospital call you primary doctor and seek emergency medical care immediately If you have any questions please call us at your earliest convince Follow-up plan as above Follow-up Provider: Rod Hinds MD Follow-up with PCP in: 1 week ARSLAN AMBROCIO DO May 08, 2016 13:09
--- NOTE | 2016-05-08 14:53 | NUR ---
Discharge Pt discharged via w/c accompanied by this RN, to POV Pt understands f/u with PCP and to see secondary school registrar.
--- NOTE | 2016-05-09 10:18 | PCM.DC.MED ---
Discharge Summary Date of Service May 09, 2016 Dates of Hospitalization Date of Hospital Admission May 06, 2016 at 01:16 Date of Discharge: May 08, 2016 Providers: Admitting Physician: Christoph Broderick MD Primary Care Physician: Rod Onofre MD Attending Physician: Christoph Broderick MD Diagnosis at Time of Discharge Diagnosis at Time of Discharge Altered mental Status Acute encephalopathy with confabulation Acute leukocytosis Acute kidney injury Hyperglycemia Hypothyroidism Hypokalemia Hypomagnesemia Procedures XRay, CTs & MRIs Chest x-ray IMPRESSION: No acute pulmonary process. Dictated by: Leesa Willard M.D. on 05/05/2016 at 17:[address] IMPRESSION: 1. No acute intracranial process. Dictated by: Leesa Willard M.D. on 05/05/2016 at 19:[address] IMPRESSION: 1. No definitely visualized source of leukocytosis. 2. It is noted that the right kidney is somewhat amorphous in morphology and in an anterior inferior position. This could represent congenital malrotation. Superimposed areas of old infection or inflammation or surgical change cannot be definitively excluded. There is no gross obstruction identified. Dictated by: Leesa Willard M.D. on 05/05/2016 at 21:35 Brief History Copied from H&P Dr. Wang "60-year-old female to history of hypertension, hypothyroidism, migraine headaches, questionable lupus presents to the ED via EMS after patient's neighbors found the patient babbling loudly with her pants. When questioned about this the patient is unable to recall the event, but is also unable to stay on topic. She was first seen in emergency department she was barking at the emergency physician and was unable to give any sort of response at that time. Patient was last seen 36 hours ago by her neighbors and at that time she was normal. Patient can answer simple questions and states that her head, neck , and back hurt when she moves her head forward. She denies fever. No diaphoresis, nausea or vomiting, diarrhea, although this should be taken with a grain of salt. We will need to reassess later. After each question the patient will confabulate and appears to be hallucinating. After she was unable to find words to express what she was saying and repeatedly makes reference to the charbel. Patient has never been admitted to this hospital with these types of symptoms. In the past her symptoms then associated with chest pain, flank pain and menopause. Patient is on amitriptyline and doxepin although we are not sure of her compliance. In the emergency department brain CT, chest x-ray, and CT of the abdomen were obtained, found to be unremarkable. Lumbar puncture was obtained and is as follows: White count of 2, RBCs of 95, glucose of 85, total protein of 26 White count is 20.9, hemoglobin 14.4, hematocrit 41.6, platelets are 303; neutrophil percent is 74.7 Sodium is 141, potassium 4.0, chloride 99, bicarbonate is 18, he is 19, creatinine is 1.19, glucose is 199, calcium 9.3, mag 1.9, normal LFTs, CRP is 7.1, procalcitonin pending Toxicology: Salicylates normal, acetaminophen normal, alcohol normal; drug screen pending" Hospital Course 60-year-old female with past medical history of hypothyroidism, anxiety, depression, migraine headaches presents via EMS due to ongoing confabulation with a negative spinal tap and imaging 1 acute encephalopathy with confabulation; present on admission; ongoing -Concern for Wernicke's encephalopathy, serotonin syndrome, stroke, acute psychotic episode, and possibly some form of meningitis or encephalitis, however the lumbar tap was negative, MRI brain negative -Patient presented unable to recall past events, and continually confabulating; unable to give detailed history except from outside records which make no mention of these problems -So far, salicylates, acetaminophen, and alcohol are all negative, with drug screen positive for TCA and Marijuana -Normal saline infusions up to 4 L as patient has extremely dry,DC when fluid status normalized and tolerate PO intake -Maintained on 100 mL/hr NS until fluid status improved -No identified sites of infection, also no fever -Consider neurology consult and EEG as out patient -Is possible that she took more of her tricyclics than usual but patient denies at this point. Per ER no acute EKG changes were noted. She denies getting any medications or drugs from anyone else. 2 Concern for Wernicke's encephalopathy; present admission; stable -Patient's confabulating with no known cause; patient's blood alcohol is normal on presentation 3 Acute leukocytosis with concern for meningitis; present on admission; ongoing -Patient met criteria for SIRS, however there is no fever and the increase in pulse may have been related to the anxiety patient is experiencing -Blood cultures are ordered, no growth after two days -CSF fluid was negative for signs of infection, and was negative on Gram stain -UA negative -White count on May 06 is down from initial value and she remains afebrile -She had no other signs or symptoms of viral or bacterial illness 4 less likely serotonin syndrome; present on admission; -Patient is currently on amitriptyline and doxepin, both of which affect serotonin levels Patient presents with an anion gap of 24 and with an elevated creatinine; but LFTs are normal, and CK was currently pending -Aggressive hydration with normal saline up to 4 L -Ativan 1-2 mg IV every 4 hours currently for agitation -Blood pressures currently 150s over 90s; we will treat this as needed -Patient becomes unstable consider serotonin antagonist like cyproheptadine 12 mg by mouth 5 acute kidney injury, likely prerenal azotemia; present on admission; ongoing -Patient has a normal creatinine at baseline; currently creatinine is 1.19 and patient looks very dehydrated -Patient given aggressive hydration on admission -Recheck labs in a.m. 6 hyperglycemia; present on admission; ongoing -Patient presents with a blood glucose of 199; on outpatient records patient has no diagnosis of diabetes and is currently not on a medications for diabetes -A1c will be checked -Patient to be placed on low correctional dose insulin after thiamine is given 7 hypothyroidism; present admission; ongoing -Patient's last TSH was 5.7 outpatient -Recheck TSH/FT4 8. Hypokalemia, stable - 40 IV riders ordered x1 - 20 IV riders ordered x 1 - 20 matma oral repletion x 1 9. Hypomagnesemia, -magnesium repletion x 2 10. Migraine headache - Imatrex initial held due to potential for QTc prolongation 11. Estrogen replacement therapy -initially held for DVT prophylaxis Exam Vital Signs (Last) Date Time Temp Pulse Resp B/P Pulse Ox O2 Delivery O2 Flow Rate FiO2 05/08/16 12:50 36.3 82 18 150/89 96 Room Air Exam Constitutional: Alert and oriented x 3, thin adult female Head: Normocephalic atraumatic Eyes: PERRLA DC EOMI Mouth: Extremely moist mucosa Neck: No adenopathy Chest clear to auscultation Cor: Slightly tachycardic, sinus Regular rhythm S1-S2 without murmur Abdomen: Soft nontender bowel sounds present Extremities: No pedal edema Skin: no rashes Psych: Appears somewhat agitated and anxious Neuro: She is alert and oriented 3, no focal deficits noted, Test 05/05/16 17:06 05/05/16 20:02 05/05/16 23:46 05/05/16 23:57 Hold Purple Top Tube Received (Received) Hold Blue Top Tube Received (Received) Hold Red Top Tube Received (Received) Hold [place] Top Tube Received (Received) Urine Color Yellow (YELLOW) Urine Appearance Clear (CLEAR,HAZY) Urine pH 6.0 (5.0-8.0) Urine Specific [place] 1.025 (1.003-1.035) Urine Protein 30mg/dL (NEG,TRACE) Urine Glucose (UA) Negativemg/dL (NEGATIVE) Urine Ketones 40mg/dL (NEGATIVE) Urine Occult Blood Small (NEGATIVE) Urine Nitrite Negative (NEGATIVE) Urine Bilirubin Negative (NEGATIVE) Urine Urobilinogen 1.0mg/dL (NORMAL) Urine Leukocyte Esterase Negative (NEGATIVE) Urine RBC 0-2/hpf (0-2) Urine WBC 0-5/hpf (0-5) Urine Epithelial Cells None/hpf (NONE-MOD) Urine Crystals None seen (NONE SEEN) Urine Bacteria Few/hpf (NONE-FEW) Urine Hyaline Casts None/lpf (NONE) Urine Granular Casts None seen (NONE SEEN) Urine Waxy Casts None seen (NONE SEEN) Urine Red Blood Cell Casts None seen (NONE SEEN) Urine White Blood Cell Casts None seen (NONE SEEN) Urine Mucus Present (None Seen) Urine Trichomonas None seen (NONE SEEN) Urine Yeast None (NONE SEEN) Urinalysis Comment None Urine Culture Reflexed Not indicated Procalcitonin < 0.05ng/mL (See Comment) Salicylates Level < 3.0ug/mL (30-250) Acetaminophen Level < 15.0ug/mL Rx (10-25) Alcohol, Quantitative < 10mg/dL (0-10) CSF Appearance Clear (CLEAR) CSF Color Colorless (COLORLESS) CSF WBC 2/mm3 (0-5) CSF RBC 95/mm3 CSF Mononuclear WBCs % CSF Polynuclear WBCs % CSF Other Cells CSF Glucose 85mg/dL (45-90) CSF Total Protein 26mg/dL (15-45) Test 05/05/16 23:59 05/06/16 00:58 05/06/16 01:35 05/06/16 08:26 Total Creatine Kinase 176U/L (21-215) Thyroid Stimulating Hormone (TSH) 7.270uIU/mL (0.450-4.500) Free Thyroxine 1.14ng/dL (0.82-1.77) Lactic Acid Level 0.9mmol/L (0.4-2.0) Opiates Screen Negativeng/mL (Cutoff:5) Oxycodone Screen Negativeng/mL (Cutoff:5) Blood Methadone Screen Negativeng/mL (Cutoff:25) Propoxyphene Level Screen Negativeng/mL (Cutoff:50) Barbiturates Negativeug/mL (Cutoff:0.1) Phencyclidine (PCP) Screen Negativeng/mL (Cutoff:8) Amphetamines Screen Negativeng/mL (Cutoff:50) Benzodiazepines Negativeng/mL (Cutoff:20) Cocaine & Metabolite Level Negativeng/mL (Cutoff:25) Cannabinoids Negativeng/mL (Cutoff:5) Ammonia 18ug/dL (18-53) Test 05/07/16 09:28 05/08/16 09:50 Neutrophils (%) (Auto) 51.4% (40-74) Lymphocytes (%) (Auto) 32.2% (14-46) Monocytes (%) (Auto) 11.7% (4-12) Eosinophils (%) (Auto) 1.2% (0-5) Basophils (%) (Auto) 1.3% (0-3) Erythrocyte Sedimentation Rate 18mm/hr (0-40) C-Reactive Protein 5.2mg/dL (0.0-0.5) White Blood Count 10.4th/mm3 (3.8-10.1) Red Blood Count 3.94mil/mm3 (3.90-5.20) Hemoglobin 12.7g/dL (12.0-15.6) Hematocrit 36.8% (35.0-46.0) Mean Corpuscular Volume 93.4fL (81-100) Mean Corpuscular Hemoglobin 32.2pg (27.0-35.0) Mean Corpuscular Hemoglobin Concent 34.5% (32.0-37.0) Red Cell Distribution Width 14.5% (12.3-15.4) Platelet Count 265bil/L (150-400) Sodium Level 137mEq/L (134-144) Potassium Level 4.0mEq/L (3.5-5.2) Chloride Level 103mEq/L (97-108) Carbon Dioxide Level 23mmol/L (18-29) Blood Urea Nitrogen 5mg/dL (8-27) Creatinine 0.59mg/dL (0.57-1.00) Estimat Glomerular Filtration Rate 149mL/min (>59) Glucose Level 135mg/dL (60-99) Calcium Level 8.0mg/dL (8.5-10.1) Magnesium Level 2.0mg/dL (1.6-2.6) Total Bilirubin 0.4mg/dL (0.0-1.2) Aspartate Amino Transf (AST/SGOT) 24U/L (0-50) Alanine Aminotransferase (ALT/SGPT) 21U/L (0-32) Alkaline Phosphatase 79U/L (25-165) Total Protein 5.7g/dL (6.4-8.4) Albumin 3.4g/dL (3.4-5.0) Discharge Medications Discharge Medications Amitriptyline (Amitriptyline) 25 Mg Tab 25-50 MG PO HS (Reported) Doxepin (Doxepin) 100 Mg Capsule 100 MG PO TID (Reported) Estrogens Conjugated (Premarin) 1 Gm Vagcream 0.5 GM VG twice a week (Reported) Estrogens, Conjugated (Premarin) 0.9 Mg Tablet 0.9 MG PO every other day ( Reported) Levothyroxine (Levothyroxine) 25 Mcg Tablet 25 MCG PO DAILY (Reported) Norelgestromin/Ethin.estradiol (Xulane Patch) 1 Each Patch.tdwk 1 EACH TD WEEKLY (Reported) Omeprazole (Omeprazole) 20 Mg Capsule.dr 20 MG PO DAILY (Reported) Propranolol HCl (Propranolol HCl) 20 Mg Tablet 20 MG PO TID (Reported) As needed Clonazepam (Clonazepam) 0.5 Mg Tablet 0.5 MG PO TID PRN PRN For Anxiety ( Reported) Cyclosporine (Restasis) 1 Each Droperette 1 EACH AFFECT_EYE BID PRN PRN for dry eyes (Reported) Ondansetron (Ondansetron) 8 Mg Tablet 8 MG PO Q8hrs PRN PRN AD (Reported) Sumatriptan Succinate (Sumatriptan Succinate) 100 Mg Tablet 100 MG PO DAILY PRN PRN for migraine (Reported) Followup Plan Follow-up plan as above Discharge Diet: No restrictions Discharge Activity: Limited until seen by PCP Patient Instructions Follow up with your Primary Care doctor by Tuesday05/10/16 or one week by the latest Speak with your primary doctor to arrange an appointment with Rheumatology You may resume home medications If you experience sudden worsening of symptoms that brought you to the hospital call you primary doctor and seek emergency medical care immediately If you have any questions please call us at your earliest convince Follow-up Provider: Rod Hinds MD Follow-up with PCP in: 1 week Time spent 35 min Attending Statement The patient was seen and examined together with Resident/House-staff on 05/08/16 and I agree with the history, exam and plan as outlined in the note above. ARSLAN AMBROCIO DO May 09, 2016 10:18 Ronny Mario May 09, 2016 17:09
== END 2016-05-08 14:40 | disposition home or self-care (01) ==
LOC: SED 16:58 → EDUNIT# 16:58 → EDBD 16:58 → INTOOBSV 22:33 → OFED 22:33 → OBSVTOIN 22:33 → UNDOADMOB 22:33 → OFED 05-06 01:16 → INTOOBSV 05-06 01:16 → OBSVTOIN 05-06 01:16 → MOC 05-06 12:57
PROVIDERS: ADMIT Hospitalist; ATTEND Hospitalist
DX: G93.49 Other encephalopathy (principal); R41.0 Disorientation, unspecified; D72.829 Elevated white blood cell count, unspecified; N17.9 Acute kidney failure, unspecified; R73.9 Hyperglycemia, unspecified; E03.9 Hypothyroidism, unspecified; E83.42 Hypomagnesemia; E87.6 Hypokalemia; M79.7 Fibromyalgia; F41.9 Anxiety disorder, unspecified; I10 Essential (primary) hypertension; G47.30 Sleep apnea, unspecified; K21.9 Gastro-esophageal reflux disease without esophagitis; J45.909 Unspecified asthma, uncomplicated; Z86.718 Personal history of other venous thrombosis and embolism; Z86.69 Personal history of other diseases of the nervous system and sense organs; R41.3 Other amnesia
CPT/HCPCS: 36415; 62270; 70450; 70549; 70553; 71010; 74177; 80048; 80053; 80307; 81000; 82140; 82308; 82550; 82945; 83605; 83735; 84155; 84439; 84443; 85025; 85027; 85651; 86140; 87040; 87070; 87205; 89051; 94664; 96361; 96372; 96374; 96375; 96376; 99285; A9585; G0378; G0480; J1815; J2060; J2270; J2405; J3480; J7030; J7620; Q9967

== ENCOUNTER 2016-06-18 20:50 | Emergency (ER) | payer OTHER ==
[~2016-06-18 20:50] MED LIST changes: -AMIT10TA6 PO; +AMT25T PO; +CYCL1DRO AFFECT_EYE; +ESTR0.9T PO; -IMI50 PO; +KLO5T PO; +LEVO25TA5 PO; +NORE1PAT7 TD; +OMEP20CA11 PO; +ONDA-54 PO; +PROP20TA5 PO; +SUMA100T2 PO; -[UNRECOGNIZED DRUG - OTHER] PO; -clonazepam PO; -propanolol PO
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
[2016-06-18] MEDS ORDERED: 0.9% Sodium Chloride 1,000 ML IV ONE (20:53)
[2016-06-18 21:02] LABS: BASOPHILS % (AUTO) 1.8 % (0-3); EOSINOPHILS % (AUTO) 0.3 % (0-5); MONOCYTES % (AUTO) 9.8 % (4-12); Mean Corpuscular Volume 90.2 fL (81-100); NEUTROPHILS % (AUTO) 65.5 % (40-74); Platelet Count 265 bil/L (150-400)
[2016-06-18 21:22] LABS: INR 0.93 ratio
[2016-06-18 21:28] LABS: TROPONIN T 0.01 ug/L (0.0-0.011)
[2016-06-18 22:16] LABS: APPEARANCE,URINE CLEAR (CLEAR,HAZY); COLOR,URINE YELLOW (YELLOW)
[2016-06-18 22:17] LABS: OCCULT BLOOD,URINE MODERATE (NEGATIVE); UROBILINOGEN,URINE 0.2 mg/dL (NORMAL)
[2016-06-19] MEDS ORDERED: Etomidate 2 mg/mL 20 mL Inj IV ONE
[2016-06-19] MEDS ORDERED: Propofol 10,000 mCg/mL 100 mL Inj ONE (00:03)
[2016-06-19] MEDS ORDERED: Vecuronium 1,000 mCg/mL 10 mL Inj ONE (00:15)
[2016-06-19 00:47] VITALS: O2SAT 100
[2016-06-19 01:42] VITALS: BP 129/90; PULSE 113; RESP 16; O2SAT 93
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
== END 2016-06-19 01:10 | disposition short-term general hospital (02) ==
LOC: EDUNIT# 20:50 → SED 20:50
DX: S22.20XA Unspecified fracture of sternum, initial encounter for closed fracture (principal); S22.42XA Multiple fractures of ribs, left side, initial encounter for closed fracture; S20.219A Contusion of unspecified front wall of thorax, initial encounter; T07 Unspecified multiple injuries; R41.82 Altered mental status, unspecified; V43.51XA Car driver injured in collision with sport utility vehicle in traffic accident, initial encounter; V47.5XXA Car driver injured in collision with fixed or stationary object in traffic accident, initial encounter; Y93.89 Activity, other specified; Y99.8 Other external cause status; Y92.410 Unspecified street and highway as the place of occurrence of the external cause; Z79.818 Long term (current) use of other agents affecting estrogen receptors and estrogen levels; Z88.0 Allergy status to penicillin; Z88.8 Allergy status to other drugs, medicaments and biological substances
CPT/HCPCS: 31500; 36415; 51702; 70450; 71010; 71260; 72125; 72170; 74177; 80053; 81001; 81025; 82140; 83690; 83735; 84484; 85014; 85018; 85025; 85610; 93005; 94002; 94799; 96360; 99291; 99292; G0390; G0480; J7030; Q9967

== ENCOUNTER 2017-01-03 11:29 | Observation (INO) | payer MEDICAID, OTHER ==
[~2017-01-03] VITALS: Ht 165.1 cm; Wt 52.9 kg
[2017-01-03] VITALS (7 sets, daily range): BP systolic 134–152; BP diastolic 82–100; PULSE 82–113; RESP 16–20; O2SAT 98–100
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
[2017-01-03] MEDS ORDERED: 0.9% Sodium Chloride 1,000 ML IV ONE (11:55)
[2017-01-03 11:58] LABS: BASOPHILS % (AUTO) 0.9 % (0-3); EOSINOPHILS % (AUTO) 0.1 % (0-5); MONOCYTES % (AUTO) 13.9 % (4-12); Mean Corpuscular Hemoglobin 32.1 pg (27.0-35.0); Mean Corpuscular Volume 91.5 fL (81-100); NEUTROPHILS % (AUTO) 63.3 % (40-74); Platelet Count 341 bil/L (150-400)
--- NOTE | 2017-01-03 12:45 | DRSVH ---
PROCEDURE: X-RAY CHEST ONE VIEW, PORTABLE ([id number]) INDICATIONS: 61 year-old female with altered mental status and lethargy. TECHNIQUE: One view of the chest was acquired. COMPARISON: [facility], CR, XR CHEST 1VW (PORTABLE), 06/19/2016, 0:17. [facility], CR, XR CHEST 1VW (PORTABLE), 06/18/2016, 20:44. [facility], CR, XR CHEST 1VW (PORT ABLE), 05/05/2016, 17:22. FINDINGS: Surgical changes and devices: None. Lungs and pleura: No pleural effusions or pneumothorax. Lungs are clear. Mediastinum: Mediastinal contours appear normal. Heart size is normal. Bones and chest wall: No suspicious bony lesions. Overlying soft tissues appear unremarkable. IMPRESSION: No acute cardiopulmonary disease. Dictated by: Christos Garcia M.D. on 01/03/2017 at 12:43 Approved by: Christos Garcia M.D. on 01/03/2017 at 12:44
--- NOTE | 2017-01-03 12:49 | DRSVH ---
PROCEDURE: CT BRAIN WITHOUT CONTRAST ([id number]) INDICATIONS: altered mental status TECHNIQUE: Noncontrast 4.5 mm thick angled axial sections acquired from the foramen magnum to the vertex, with c oronal reformats. COMPARISON: [facility], CT, CT BRAIN WO CON, 06/18/2016, 21:59. FINDINGS: Image quality: Excellent. CSF spaces: Basal cisterns are patent. No extra-axial fluid collections. Ventricles are normal in size and shape. Brain: No midline shift. No intracranial masses or hemorrhage. Malik-white matter interface is norm al. Skull and face: Calvarium and visualized facial bones are intact, without suspicious lesions. Sinuses: Visualized sinuses and mastoids are clear. IMPRESSION: Normal for age, source of altered mental status is not seen. Dictated by: Chance Segovia M.D. on 01/03/2017 at 12:47 Approved by: Chance Segovia M.D. on 01/03/2017 at 12:47
[2017-01-03] MEDS ORDERED: 0.9% Sodium Chloride 1,000 ML IV SCH (13:19)
[2017-01-03] MEDS ORDERED: Alum-Mag Hydrox-Simeth 30 mL Suspension PO PRN ×2 (13:20)
[2017-01-03] MEDS ORDERED: Polyethylene Glycol (PEG) 17 Gm Powder PO PRN ×2 (13:20)
[2017-01-03] MEDS ORDERED: Ondansetron 2 mg/mL 2 mL Inj IVPUSH PRN ×2 (13:20)
[2017-01-03 13:46] LABS: APPEARANCE,URINE CLEAR (CLEAR,HAZY); COLOR,URINE YELLOW (YELLOW); OCCULT BLOOD,URINE TRACE (NEGATIVE); UROBILINOGEN,URINE NORMAL (NORMAL)
[2017-01-03 14:06] LABS: Magnesium 1.8 mg/dL (1.6-2.6)
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
[2017-01-03] MEDS ORDERED: DOXE150C7 PO (14:37)
[2017-01-03] MEDS ORDERED: ESTR2TAB2 PO (14:37)
[2017-01-03] MEDS ORDERED: CYCL1DRO BOTH_EYES (14:49)
[2017-01-03] MEDS ORDERED: OXYC-474 PO (14:49)
[2017-01-03] MEDS ORDERED: PRE625 PO (14:49)
[2017-01-03] MEDS ORDERED: GABA600T2 PO (14:51)
--- NOTE | 2017-01-03 14:53 | ABG ---
DateTimeAnalyzed 14:42:00 -_ pH ____7.458 - 7.350 7.450 pCO2 ___31.6__ -mmHg 35.0 45.0 pO2 ___93.2__ -mmHg 69.0 116 HCO3- ___22.0__ -mmol/L 22.0 26.0 ABE ___-0.7__ -mmol/L -2.0 2.0 tHb ___12.5__ -g/dL 12.0 18.0 O2Hb ___94.1__ -% COHb ____0.7__ -% 0.0 1.5 MetHb ____1.7__ -% 0.4 1.5 sO2 ___96.5__ -% FIO2 ___21.0__ -% Drawn By Lw - Date/Time Notified____ 14:52:00 -_ Oxygen Device 1 RA - Notified By ___Dr. Leak - Notified Whom ___Dr. Leak - B 751 -mmHg tO2 ___16.6__ -Vol% Shayne test _Positive -
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
[2017-01-03] MEDS: Heparin 5,000 Unit/mL Inj SUBQ SCH (17:21)
--- NOTE | 2017-01-03 17:24 | NUR ---
Nurse swallow Pt failed nurse swallow. attempted 2x, 1 hr apart. Speech a bit muffled. Pt seen to fall asleep mid-sentence. Unable to produce a cough, more of a throat clearing. notified. Pt continuos to be NPO with q6 hr BG checks. Receiving IVF, NS @ 100mL/hr Addendum: 01/03/17 at 1742 by ZEFERINO HOFFMANN RN Last BG in the 90s. Admitting notified, change of order recd on IVF.
[2017-01-03] MEDS: Dextrose 5% 0.9% NaCl 1,000 ML IV SCH (17:55)
[2017-01-04 00:43] VITALS: BP 146/72; PULSE 78; RESP 16; O2SAT 97
[2017-01-04] MEDS: Heparin 5,000 Unit/mL Inj SUBQ SCH ×2 (00:53→08:48)
--- NOTE | 2017-01-04 02:34 | NUR ---
Noc activity Pt has been alert and oriented. Denies chest pain, sob, n/v or abd discomfort. IVF D5NS running 100ml/hr. Has been pleasant and cooperative with care. Pt requested to have something to eat. Swallow screen passed. MD ordered diet and pt had some dinner to eat. Continuing to monitor.
[2017-01-04] MEDS: Dextrose 5% 0.9% NaCl 1,000 ML IV SCH (04:12)
[2017-01-04 05:37] VITALS: BP 147/93; PULSE 87; RESP 16; O2SAT 96
[2017-01-04 06:33] LABS: BASOPHILS % (AUTO) 0.7 % (0-3); EOSINOPHILS % (AUTO) 1.3 % (0-5); MONOCYTES % (AUTO) 16.1 % (4-12); Mean Corpuscular Hemoglobin 32.4 pg (27.0-35.0); Mean Corpuscular Volume 92.8 fL (81-100); NEUTROPHILS % (AUTO) 32.8 % (40-74); Platelet Count 271 bil/L (150-400)
[2017-01-04 10:11] VITALS: BP 133/75; PULSE 78; RESP 18; O2SAT 96
[2017-01-04] MEDS ORDERED: APIX5TAB PO (10:23)
--- NOTE | 2017-01-04 10:40 | PCM.DIMED ---
Discharge Instructions Date of Service Jan 04, 2017 Dates of Hospitalization Jan 03, 2017 at 13:26 Discharge Diagnosis Discharge Diagnosis Acute encephalopathy Diet Discharge Diet: No restrictions Activity Discharge Activity: No restrictions Call your provider Call your provider for: Other (recurrence of symptoms) Patient Instructions Patient Instructions Discuss your medications with your doctor, especially the Doxepin and Amitriptyline, and see if he feels you should have a consultation with a psychiatrists. Also have him review your hormones and your thyroid medication dose. Your blood test (TSH 8) suggests you might need a higher dose of thyroid medicine. Follow-up with PCP in: 1 week Yuliana Arriaga MD Jan 04, 2017 10:40
[2017-01-04] MEDS ORDERED: DOXE150C7 PO (10:41)
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
--- NOTE | 2017-01-04 11:15 | NUR ---
Discharge patient is alert and oriented X3. Able to make needs known. Reviewed discharge paper work, discharge home medications, and follow up appointment with PCP per discharge paper work instructions by MD. Rice pain or discomfort. spouse at bed side. 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 Pheripheral IV discontinued to right AC with out difficulty. patient will call and schedule follow up appointment. spouse here to cell support operator patient at this time.
--- NOTE | 2017-01-04 12:12 | NUR ---
Discharge patient left unit approx 1210 accompained by nursing staff via wheel chair.
[2017-01-10] MEDS ORDERED: NORELGESTROMIN TOPICAL SCH (08:30)
[2017-01-10] MEDS ORDERED: ETHIN ESTRADIOL TOPICAL SCH (08:30)
== END 2017-01-04 12:05 | disposition home or self-care (01) ==
LOC: SED 11:29 → INTOOBSV 13:26 → MPC 13:26
PROVIDERS: ADMIT Internal Medicine; ATTEND Internal Medicine
DX: G93.49 Other encephalopathy (principal); F41.9 Anxiety disorder, unspecified; E03.9 Hypothyroidism, unspecified; M79.7 Fibromyalgia; R41.82 Altered mental status, unspecified; G47.33 Obstructive sleep apnea (adult) (pediatric); G47.00 Insomnia, unspecified; K21.9 Gastro-esophageal reflux disease without esophagitis; I25.2 Old myocardial infarction; Z88.8 Allergy status to other drugs, medicaments and biological substances; Z79.890 Hormone replacement therapy; Z88.0 Allergy status to penicillin; Z90.710 Acquired absence of both cervix and uterus; Z86.69 Personal history of other diseases of the nervous system and sense organs
CPT/HCPCS: 36415; 36620; 70450; 71010; 80048; 80053; 81000; 81002; 82075; 82375; 82803; 83036; 83735; 84145; 84439; 84443; 85025; 93005; 96361; 96372; 96374; 99285; G0378; G0480; J1644; J2060; J7030; J7042